=== PATIENT | female | born 1990 | race African-American/Black ===

== ENCOUNTER 2017-01-19 18:35 | Emergency (ER) | payer OTHER ==
[~2017-01-19] VITALS: Ht 165.1 cm; Wt 66.2 kg
[~2017-01-19 18:35] MED LIST: BACTRIM DS TAB1 EACH PO; BIRTH CONTROL PO; COLACE100 MG PO; HYDROCODONE-AP1 EAC6 PO; IBUPROFEN 800800 M1 PO; NOHOMEMEDICATIONS
[2017-01-19 19:10] LABS: URINE BILIRUBIN 1+ (Negative); URINE BLOOD NEGATIVE (Negative); URINE COLOR YELLOW; URINE GLUCOSE-RANDOM* NEGATIVE (Negative); URINE KETONES 1+ (Negative); URINE NITRITE NEGATIVE (Negative); URINE PROTEIN (DIPSTICK) TRACE (Negative); URINE SPECIFIC GRAVITY >= 1.030 (1.003-1.035); URINE UROBILINOGEN 0.2 E.U./dl (0.2-1.0)
[2017-01-19 19:13] LABS: ICTOTEST (BILI CONFIRMATORY) Negative (Negative)
[2017-01-19 19:26] LABS: ABSOLUTE NEUTROPHILS 5.5 thou/uL (1.4-8.2); BASOPHILS 1.4 % (0.0-2.0); EOSINOPHILS 1.2 % (0.0-3.0); HEMATOCRIT 36.5 % (37.0-47.0); HEMOGLOBIN 12.5 gm/dL (12.0-15.0); LYMPHOCYTES 17.7 % (24.0-44.0); MCH 29.1 pg (26.0-34.0); MCHC 34.3 g/dL (28.0-37.0); MONOCYTES 8.2 % (1.0-8.0); PLATELET COUNT 267 thou/uL (150-400); POLYS 71.5 % (36.0-66.0); RDW 13.2 % (10.5-14.5); WBC 7.7 thou/uL (4.0-11.0)
[2017-01-19 19:28] LABS: MANUAL DIFF NO
[2017-01-19 19:34] LABS: CALCIUM 8.9 mg/dL (8.5-10.1); CREATININE 0.8 mg/dL (0.6-1.0); POTASSIUM 3.7 mmol/L (3.5-5.1)
[2017-01-19] MEDS ORDERED: NORCO 5-325 TA1 EACH PO (19:50)
== END 2017-01-19 20:03 | disposition home or self-care (01) ==
LOC: ER 18:35
PROVIDERS: Emergency Medicine
DX: M25.572 Pain in left ankle and joints of left foot (principal); M25.571 Pain in right ankle and joints of right foot; M25.531 Pain in right wrist; M25.532 Pain in left wrist; F10.99 Alcohol use, unspecified with unspecified alcohol-induced disorder